=== PATIENT | male | born 1955 | race African-American/Black ===

== ENCOUNTER 2019-05-02 12:37 | Inpatient (IN) | payer OTHER ==
[2019-05-02 14:47] VITALS: BMI 19.6
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
--- NOTE | 2019-05-02 15:43 | PN ---
Teaching Attending Note Name of Resident: Jama Santos ATTENDING PHYSICIAN STATEMENT I saw and evaluated the patient. I reviewed the resident's note and discussed the case with the resident. I agree with the resident's findings and plan as documented. SUBJECTIVE: 63yo with h/o HIV, HTN, seizures and PUD, recently discharged from [facility] after a 2 day stay for seizures- was not taking his meds. Pt here for rehab- uses alcohol and marijuana. There are no beds available- pt seen by counselor and will go home, as there are no other beds available, pt will return tomorrow
[2019-05-02] MEDS ORDERED: guaiFENesin 200 MG/10 ML 10 ML UNIT-DOSE CUPS PO PRN (20:05)
[2019-05-02] MEDS ORDERED: NICOTINE POLACRILEX 2 MG GUM BUC PRN (20:05)
[2019-05-02] MEDS ORDERED: ACETAMINOPHEN 325 MG TABLET (FP) PO PRN (20:05)
[2019-05-02] MEDS ORDERED: IBUPROFEN 400 MG TABLET (FP) PO PRN (20:05)
[2019-05-02] MEDS ORDERED: P-EPHED 60MG/TRIPROLIDI 2.5MG TABLET PO PRN (20:05)
[2019-05-02] MEDS ORDERED: MENTHOL/PHENOL 1 EACH UD MM PRN (20:05)
[2019-05-02] MEDS ORDERED: LOPERAMIDE HCL 2 MG CAPSULE PO PRN (20:05)
[2019-05-02] MEDS ORDERED: MAGNESIUM CITRATE 300 ML BOTTLE PO PRN (20:05)
[2019-05-02] MEDS ORDERED: hydrOXYzine PAMOATE 25 MG CAPSULE (FP) PO PRN (20:05)
[2019-05-02] MEDS ORDERED: COLLOIDAL OATMEAL 1 BAR EACH TP PRN (20:09)
[2019-05-02] MEDS ORDERED: AMMONIUM LACTATE 12% LOTION 225 GM BOTTLE TP PRN (20:11)
[2019-05-02] MEDS ORDERED: LEVETIRACETAM 500 MG PO SCH (22:00)
[2019-05-02] MEDS ORDERED: VALGANCICLOVIR HCL PO SCH (22:00)
--- NOTE | 2019-05-02 22:05 | PN ---
[facility] Progress Note Note: Patient w/ a hx cocaine and marijuana use disorder. Patient states drinks on weekends. See 05/02/19 H&P. PMHx: Seizures, HIV + (states undetectable), acid reflux, HTN, CVA w/ residual ( R) sided weakness. States last seizure 4 days ago and was hospitalized at [facility]. States last alcohol use 4 days ago. PE: PERRL. Throat w/o lesions or exudate. Lungs CTA. Abd: S/NT/BS+ GALVAN: No edema. Neuro: BHG (L)>(R); Angelo Foot push (L)>(R). Denies headache. Gait steady w/ use of cane. Patient to be admitted to rehab.
[2019-05-02] MEDS: PANTOPRAZOLE 20 MG TABLET (FP) PO SCH (22:54)
[2019-05-02] MEDS: ATORVASTATIN CA 20 MG TABLET (FP) PO SCH (22:54)
[2019-05-02] MEDS: ATOVAQUONE 750 MG/5 ML (UNIT-DOSE PACKAGING) PO SCH (22:54)
[2019-05-02] MEDS: levETIRAcetam 500 MG TABLET (FP) PO SCH (22:54)
[2019-05-02] MEDS: THIAMINE HCL 100 MG TABLET (FP) PO SCH (22:55)
[2019-05-03] MEDS: ATOVAQUONE 750 MG/5 ML (UNIT-DOSE PACKAGING) PO SCH ×2 (10:08→21:30)
[2019-05-03] MEDS: PANTOPRAZOLE 20 MG TABLET (FP) PO SCH ×2 (10:08→21:30)
[2019-05-03] MEDS: levETIRAcetam 500 MG TABLET (FP) PO SCH ×2 (10:08→21:30)
[2019-05-03] MEDS: PRENATAL VITAMINS W/ FOLIC ACID TABLET (FP) PO SCH (10:08)
[2019-05-03] MEDS: NICOTINE 7 MG/24 HOURS TOPICAL PATCH TD SCH (10:09)
--- NOTE | 2019-05-03 10:41 | CONSULT ---
[facility] Psychiatric Consult - Data Date of interview: 05/03/19 Admission source: [facility] Identifying data: Patient is a 63 year old single male, father of seven, unemployed, domiciled, and is supported by [facility]. This is patient's first admission to rehab at [facility]. Patient admitted to for alcohol, marijuana, and cocaine dependence. Substance Abuse History: Smoking Cessation. Smoking history: Current every day smoker. Aproximately how many cigarettes per day: 2. - Substances abused. Alcohol. Substance route: Oral. Frequency: 1-2 times per week. Amount used: 1 /2 pint of vodka. Age of first use: 13. Date of last use: 04/25/19. Marijuana/Hashish. Substance route: Smoking. Frequency: Daily. Amount used: 2 blunts. Age of first use: 10. Date of last use: 04/23/19 Medical History: hypertension, seizures, CVA Psychiatric History: Patient denies h/o psychiatric hospitalization, outpatient care, and suicide attempt. Patient is currently prescribe zoloft 100mg daily + seroquel 100mg (30 day script on 04/23/19) which he claims he received from his PCP at the [facility] in [place], [place]. Reports never taking zoloft but has taken seroquel for insomnia. At present, patient reports stable mood but is experiencing difficulty sleeping. Physical/Sexual Abuse/Trauma History: denies. Mental Status Exam - Mental Status Exam Alert and Oriented to: Time, Place, Person Cognitive Function: Good Patient Appearance: Well Groomed Mood: Euthymic Affect: Mood Congruent Patient Behavior: Cooperative Speech Pattern: Appropriate Voice Loudness: Moderately Soft/Quiet Thought Process: Goal Oriented Thought Disorder: Not Present Hallucinations: Denies Suicidal Ideation: Denies Homicidal Ideation: Denies Insight/Judgement: Poor Sleep: Poorly Appetite: Fair Muscle strength/Tone: Normal Gait/Station: Other (Patient ambulates with a cane.) Psychiatric Findings - Problem List (Patrick 1, 2,3) (1) Alcohol dependence Current Visit: Yes Status: Acute (2) Cocaine dependence Current Visit: Yes Status: Acute (3) Marijuana dependence Current Visit: Yes Status: Acute (4) Substance-induced sleep disorder Current Visit: Yes Status: Acute - Initial Treatment Plan Initial Treatment Plan: Psychoeducation provided. Rehab in progress. Will order Seroquel 50mg HS (reduced dose due to noncompliance and unsteady gait). Benefits and side effects discussed. Verbal consent given.
[2019-05-03 11:36] LABS: HEMATOCRIT 27.2 % (35.4-49); HEMOGLOBIN 9.2 GM/dL (11.7-16.9); MCH 29.5 pg (25.7-33.7); MCHC 33.7 g/dl (32.0-35.9); MEAN CELL VOLUME 87.8 fl (80-96); MEAN PLT VOLUME 9.2 fl (7.5-11.1); PLATELET COUNT 157 K/MM3 (134-434); RDW 19.3 % (11.9-15.9)
[2019-05-03 11:38] LABS: ALBUMIN 2.7 g/dl (3.4-5.0); BILIRUBIN,TOTAL 0.3 mg/dL (0.2-1); BLOOD UREA NITROGEN 15.1 mg/dL (7-18); CALCIUM 8.4 mg/dL (8.5-10.1); POTASSIUM 3.9 mmol/L (3.5-5.1); TOT PROT 7.3 g/dl (6.4-8.2)
[2019-05-03 11:59] LABS: WHITE BLOOD COUNT 1.7 K/mm3 (4.0-10.0)
--- NOTE | 2019-05-03 12:22 | PN ---
S Progress Note Note: patient is adherent to his HIV medications. Also required prophylaxis for MAC. Bictarvy and Azithromycin ordered for the patient. Discussed with patient.
--- NOTE | 2019-05-03 14:10 | EKG ---
Test Reason : Blood Pressure : / mmHG Vent. Rate : 069 BPM Atrial Rate : 069 BPM P-R Int : 156 ms QRS Dur : 072 ms QT Int : 416 ms P-R-T Axes : 076 059 056 degrees QTc Int : 445 ms NORMAL SINUS RHYTHM NORMAL ECG NO PREVIOUS ECGS AVAILABLE Confirmed by ROSANA CRUZ, USHA ([id number]) on 05/03/2019 2:09:49 PM Referred By: HINA OCHOA Confirmed By:USHA WAYNE MD
[2019-05-03] MEDS: MAG HYDROX/AL HYDROX/SIMETH 30 ML UNIT-DOSE CUP PO PRN (14:46)
--- NOTE | 2019-05-03 15:36 | PN ---
[facility] Progress Note (SOAP) Subjective: Patient experienced a witnessed seizure. On Keppra, level pending. PMHx of seizure disorder from childhood. Objective: BP: 143/76, HR-93, afebrile, O2 sats98%. during seizure. General: calm and fatigued after seizure HEENT: normocephalic, PERRLA Lungs: clear Heart: s1 s2 audible Neuro: CN 2-12 intact, 05/03/19 15:33 Assessment: seizure disorder 05/03/19 15:35 Plan: Keppra level pending. Consulted with chief resident. If keppra level is within normal limits, increase Keppra dose from 500mg to 1,000 BID. Continue to monitor ; transfer to ER is not needed at this time. Nurses aware of plan.
[2019-05-03] MEDS ORDERED: PT OWN MED DRAWER 7, Y5N ONE ×2 (19:09→19:40)
[2019-05-03] MEDS: MAGNESIUM HYDROX 2400MG/30ML ORAL SUSPENSION 30 ML CUP PO PRN (19:12)
[2019-05-03] MEDS: THIAMINE HCL 100 MG TABLET (FP) PO SCH (21:30)
[2019-05-03] MEDS: QUEtiapine FUMARATE 100 MG TABLET (FP) PO SCH (21:30)
[2019-05-03] MEDS: ATORVASTATIN CA 20 MG TABLET (FP) PO SCH (21:30)
[2019-05-04] MEDS: BICTEGRAV/EMTRICIT/TENOFOV (BIKTARVY) 50-200-25 MG TABLET PO SCH (07:46)
[2019-05-04] MEDS ORDERED: PT OWN MED DRAWER 7, Y5N ONE ×4 (08:47→21:27)
[2019-05-04] MEDS: ATOVAQUONE 750 MG/5 ML (UNIT-DOSE PACKAGING) PO SCH ×2 (10:15→21:23)
[2019-05-04] MEDS: NICOTINE 7 MG/24 HOURS TOPICAL PATCH TD SCH (10:16)
[2019-05-04] MEDS: PANTOPRAZOLE 20 MG TABLET (FP) PO SCH ×2 (10:16→21:21)
[2019-05-04] MEDS: levETIRAcetam 500 MG TABLET (FP) PO SCH ×2 (10:16→21:20)
[2019-05-04] MEDS: PRENATAL VITAMINS W/ FOLIC ACID TABLET (FP) PO SCH (10:16)
[2019-05-04] MEDS ORDERED: AZITHROMYCIN 600 MG TABLET PO ONE (13:00)
[2019-05-04] MEDS: MAG HYDROX/AL HYDROX/SIMETH 30 ML UNIT-DOSE CUP PO PRN (14:33)
[2019-05-04] MEDS: QUEtiapine FUMARATE 100 MG TABLET (FP) PO SCH (21:21)
[2019-05-04] MEDS: ATORVASTATIN CA 20 MG TABLET (FP) PO SCH (21:21)
[2019-05-04] MEDS: THIAMINE HCL 100 MG TABLET (FP) PO SCH (21:24)
[2019-05-04] MEDS: MAGNESIUM HYDROX 2400MG/30ML ORAL SUSPENSION 30 ML CUP PO PRN (21:28)
[2019-05-05] MEDS: BICTEGRAV/EMTRICIT/TENOFOV (BIKTARVY) 50-200-25 MG TABLET PO SCH (08:50)
[2019-05-05] MEDS: PRENATAL VITAMINS W/ FOLIC ACID TABLET (FP) PO SCH (10:53)
[2019-05-05] MEDS: NICOTINE 7 MG/24 HOURS TOPICAL PATCH TD SCH (10:53)
[2019-05-05] MEDS: levETIRAcetam 500 MG TABLET (FP) PO SCH ×2 (10:53→21:19)
[2019-05-05] MEDS: PANTOPRAZOLE 20 MG TABLET (FP) PO SCH ×2 (10:53→21:20)
[2019-05-05] MEDS: ATOVAQUONE 750 MG/5 ML (UNIT-DOSE PACKAGING) PO SCH ×2 (10:53→21:20)
[2019-05-05] MEDS: MAG HYDROX/AL HYDROX/SIMETH 30 ML UNIT-DOSE CUP PO PRN (16:44)
[2019-05-05] MEDS: THIAMINE HCL 100 MG TABLET (FP) PO SCH (21:19)
[2019-05-05] MEDS: ATORVASTATIN CA 20 MG TABLET (FP) PO SCH (21:19)
[2019-05-05] MEDS: QUEtiapine FUMARATE 100 MG TABLET (FP) PO SCH (21:20)
[2019-05-06] MEDS: BICTEGRAV/EMTRICIT/TENOFOV (BIKTARVY) 50-200-25 MG TABLET PO SCH (09:00)
[2019-05-06] MEDS: levETIRAcetam 500 MG TABLET (FP) PO SCH ×2 (09:58→22:54)
[2019-05-06] MEDS: ATOVAQUONE 750 MG/5 ML (UNIT-DOSE PACKAGING) PO SCH ×2 (09:59→22:54)
[2019-05-06] MEDS: PRENATAL VITAMINS W/ FOLIC ACID TABLET (FP) PO SCH (10:00)
[2019-05-06] MEDS: PANTOPRAZOLE 20 MG TABLET (FP) PO SCH ×2 (10:00→22:54)
[2019-05-06] MEDS: NICOTINE 7 MG/24 HOURS TOPICAL PATCH TD SCH (10:00)
[2019-05-06] MEDS: ATORVASTATIN CA 20 MG TABLET (FP) PO SCH (22:54)
[2019-05-06] MEDS: THIAMINE HCL 100 MG TABLET (FP) PO SCH (22:55)
[2019-05-06] MEDS: QUEtiapine FUMARATE 100 MG TABLET (FP) PO SCH (22:55)
[2019-05-07] MEDS: BICTEGRAV/EMTRICIT/TENOFOV (BIKTARVY) 50-200-25 MG TABLET PO SCH (08:03)
[2019-05-07] MEDS: PANTOPRAZOLE 20 MG TABLET (FP) PO SCH ×2 (09:04→22:18)
[2019-05-07] MEDS: ATOVAQUONE 750 MG/5 ML (UNIT-DOSE PACKAGING) PO SCH ×2 (10:05→22:18)
[2019-05-07] MEDS: NICOTINE 7 MG/24 HOURS TOPICAL PATCH TD SCH (10:05)
[2019-05-07] MEDS: levETIRAcetam 500 MG TABLET (FP) PO SCH ×2 (10:05→22:17)
[2019-05-07] MEDS: PRENATAL VITAMINS W/ FOLIC ACID TABLET (FP) PO SCH (10:06)
[2019-05-07] MEDS: THIAMINE HCL 100 MG TABLET (FP) PO SCH (22:18)
[2019-05-07] MEDS: ATORVASTATIN CA 20 MG TABLET (FP) PO SCH (22:18)
[2019-05-07] MEDS: QUEtiapine FUMARATE 100 MG TABLET (FP) PO SCH (22:19)
[2019-05-08] MEDS: BICTEGRAV/EMTRICIT/TENOFOV (BIKTARVY) 50-200-25 MG TABLET PO SCH (08:01)
[2019-05-08] MEDS: levETIRAcetam 500 MG TABLET (FP) PO SCH ×2 (10:00→21:28)
[2019-05-08] MEDS: NICOTINE 7 MG/24 HOURS TOPICAL PATCH TD SCH (10:00)
[2019-05-08] MEDS: PRENATAL VITAMINS W/ FOLIC ACID TABLET (FP) PO SCH (10:00)
[2019-05-08] MEDS: PANTOPRAZOLE 20 MG TABLET (FP) PO SCH ×2 (10:00→21:28)
[2019-05-08] MEDS: ATOVAQUONE 750 MG/5 ML (UNIT-DOSE PACKAGING) PO SCH ×2 (10:00→21:28)
[2019-05-08] MEDS: MAG HYDROX/AL HYDROX/SIMETH 30 ML UNIT-DOSE CUP PO PRN ×2 (10:02→21:29)
[2019-05-08] MEDS ORDERED: PT OWN MED DRAWER 7, Y5N ONE (10:18)
[2019-05-08 12:42] LABS: PH,URINE 5.5 (5.0-8.0); URINE APPEARANCE CLEAR; URINE BILIRUBIN NEGATIVE (NEGATIVE); URINE COLOR YELLOW; URINE GLUCOSE (UA) NEGATIVE (NEGATIVE); URINE KETONE NEGATIVE (NEGATIVE); URINE LEUK ESTERASE NEGATIVE (NEGATIVE); URINE NITRITE NEGATIVE (NEGATIVE); URINE PROTEIN NEGATIVE (NEGATIVE); URINE UROBILINOGEN 0.2 mg/dL (0.2-1.0)
[2019-05-08] MEDS: QUEtiapine FUMARATE 100 MG TABLET (FP) PO SCH (21:27)
[2019-05-08] MEDS: THIAMINE HCL 100 MG TABLET (FP) PO SCH (21:28)
[2019-05-08] MEDS: ATORVASTATIN CA 20 MG TABLET (FP) PO SCH (21:28)
[2019-05-09] MEDS: BICTEGRAV/EMTRICIT/TENOFOV (BIKTARVY) 50-200-25 MG TABLET PO SCH (08:07)
[2019-05-09] MEDS: PANTOPRAZOLE 20 MG TABLET (FP) PO SCH ×2 (10:06→21:18)
[2019-05-09] MEDS: PRENATAL VITAMINS W/ FOLIC ACID TABLET (FP) PO SCH (10:06)
[2019-05-09] MEDS: ATOVAQUONE 750 MG/5 ML (UNIT-DOSE PACKAGING) PO SCH ×2 (10:07→21:18)
[2019-05-09] MEDS: levETIRAcetam 500 MG TABLET (FP) PO SCH ×2 (10:07→21:18)
[2019-05-09] MEDS: NICOTINE 7 MG/24 HOURS TOPICAL PATCH TD SCH (10:08)
[2019-05-09] MEDS: MAG HYDROX/AL HYDROX/SIMETH 30 ML UNIT-DOSE CUP PO PRN ×2 (10:09→21:18)
[2019-05-09] MEDS: QUEtiapine FUMARATE 100 MG TABLET (FP) PO SCH (21:18)
[2019-05-09] MEDS: THIAMINE HCL 100 MG TABLET (FP) PO SCH (21:18)
[2019-05-09] MEDS: ATORVASTATIN CA 20 MG TABLET (FP) PO SCH (21:18)
[2019-05-10] MEDS: BICTEGRAV/EMTRICIT/TENOFOV (BIKTARVY) 50-200-25 MG TABLET PO SCH (09:00)
[2019-05-10] MEDS: levETIRAcetam 500 MG TABLET (FP) PO SCH ×2 (10:00→21:39)
[2019-05-10] MEDS: PANTOPRAZOLE 20 MG TABLET (FP) PO SCH ×2 (10:01→21:39)
[2019-05-10] MEDS: NICOTINE 7 MG/24 HOURS TOPICAL PATCH TD SCH (10:01)
[2019-05-10] MEDS: PRENATAL VITAMINS W/ FOLIC ACID TABLET (FP) PO SCH (10:01)
[2019-05-10] MEDS: ATOVAQUONE 750 MG/5 ML (UNIT-DOSE PACKAGING) PO SCH ×2 (10:01→21:39)
[2019-05-10] MEDS: MAG HYDROX/AL HYDROX/SIMETH 30 ML UNIT-DOSE CUP PO PRN (10:04)
--- NOTE | 2019-05-10 14:05 | PN ---
S Progress Note (SOAP) Subjective: Patient c/o redness and itching in right eye. Denies injury, purulent discharge , stuck together eyelids upon awakening. Objective: P/E General: no apparent distress, resting comfortably in bed HEENTM: PERRLA, Right eye injected, tearing. 05/10/19 14:03 Assessment: allergic conjunctivitis vs viral conjunctivitis 05/10/19 14:04 Plan: Ordered Naphcon-A, will continue to monitor; any changes will re-assess.
[2019-05-10] MEDS ORDERED: NAPHAZOLINE 0.1% OPHTHALMIC SOLUTION 15 ML BOTTLE OD SCH (18:00)
[2019-05-10] MEDS: TETRAHYDROZOLINE HCL EYE DROPS OS SCH ×2 (18:15→21:40)
[2019-05-10] MEDS: ATORVASTATIN CA 20 MG TABLET (FP) PO SCH (21:39)
[2019-05-10] MEDS: THIAMINE HCL 100 MG TABLET (FP) PO SCH (21:39)
[2019-05-10] MEDS: QUEtiapine FUMARATE 100 MG TABLET (FP) PO SCH (21:39)
[2019-05-11] MEDS: PRENATAL VITAMINS W/ FOLIC ACID TABLET (FP) PO SCH (10:10)
[2019-05-11] MEDS: PANTOPRAZOLE 20 MG TABLET (FP) PO SCH ×2 (10:10→21:38)
[2019-05-11] MEDS: levETIRAcetam 500 MG TABLET (FP) PO SCH ×2 (10:10→21:37)
[2019-05-11] MEDS: ATOVAQUONE 750 MG/5 ML (UNIT-DOSE PACKAGING) PO SCH ×2 (10:11→21:38)
[2019-05-11] MEDS: BICTEGRAV/EMTRICIT/TENOFOV (BIKTARVY) 50-200-25 MG TABLET PO SCH (10:15)
[2019-05-11] MEDS: NICOTINE 7 MG/24 HOURS TOPICAL PATCH TD SCH (10:15)
[2019-05-11] MEDS: MAGNESIUM HYDROX 2400MG/30ML ORAL SUSPENSION 30 ML CUP PO PRN (10:15)
[2019-05-11] MEDS: TETRAHYDROZOLINE HCL EYE DROPS OS SCH ×4 (10:15→21:41)
--- NOTE | 2019-05-11 16:26 | PN ---
[facility] Progress Note Note: Rapid response called due to patient having seizure. When residential mortgage underwriter arrived to unit , patient was sitting in chair in hallway, alert and verbally responsive. PMH HIV +, ETOH/THC dependence and Seizure disorder. Last witnessed seizure 05/02. Patient on Keppra and dose adjusted by LEAD SYSTEMS ANALYST Francia Diaz on 05/02/19. Last Keppra level 05/03/19 4.3. V/S 128/78 114 22 O2 sats 95% Oxygen 3l via nc applied and patient's safety maintained. After one minute, patient had olfactory aura and then began to seize again, for approximately 15- 20 seconds. 911 called and patient monitored by Dr. Reddy, nursing staff and provider until EMS arrived. Patient had one more witness seizure with EMS present and patient medicated with Versed by EMS. Patient transferred to [facility] ER for evaluation and treatment. Report given to Kelly Astorga RN.
[2019-05-11] MEDS: ATORVASTATIN CA 20 MG TABLET (FP) PO SCH (21:37)
[2019-05-11] MEDS: QUEtiapine FUMARATE 100 MG TABLET (FP) PO SCH (21:38)
[2019-05-11] MEDS: THIAMINE HCL 100 MG TABLET (FP) PO SCH (21:41)
[2019-05-12] MEDS ORDERED: PT OWN MED DRAWER 7, Y5N ONE ×2 (02:57→20:16)
[2019-05-12] MEDS: BICTEGRAV/EMTRICIT/TENOFOV (BIKTARVY) 50-200-25 MG TABLET PO SCH (07:41)
[2019-05-12] MEDS: levETIRAcetam 500 MG TABLET (FP) PO SCH ×2 (09:50→21:53)
[2019-05-12] MEDS: PRENATAL VITAMINS W/ FOLIC ACID TABLET (FP) PO SCH (09:50)
[2019-05-12] MEDS: PANTOPRAZOLE 20 MG TABLET (FP) PO SCH ×2 (09:50→21:55)
[2019-05-12] MEDS: MAG HYDROX/AL HYDROX/SIMETH 30 ML UNIT-DOSE CUP PO PRN (09:52)
[2019-05-12] MEDS: NICOTINE 7 MG/24 HOURS TOPICAL PATCH TD SCH (09:53)
[2019-05-12] MEDS: ATOVAQUONE 750 MG/5 ML (UNIT-DOSE PACKAGING) PO SCH ×2 (09:53→21:55)
[2019-05-12] MEDS: TETRAHYDROZOLINE HCL EYE DROPS OS SCH ×4 (10:10→21:55)
[2019-05-12] MEDS: QUEtiapine FUMARATE 100 MG TABLET (FP) PO SCH (21:55)
[2019-05-12] MEDS: THIAMINE HCL 100 MG TABLET (FP) PO SCH (21:55)
[2019-05-12] MEDS: ATORVASTATIN CA 20 MG TABLET (FP) PO SCH (21:55)
[2019-05-13] MEDS: BICTEGRAV/EMTRICIT/TENOFOV (BIKTARVY) 50-200-25 MG TABLET PO SCH (07:04)
[2019-05-13] MEDS: MAG HYDROX/AL HYDROX/SIMETH 30 ML UNIT-DOSE CUP PO PRN ×2 (07:06→21:29)
[2019-05-13] MEDS: PANTOPRAZOLE 20 MG TABLET (FP) PO SCH ×2 (10:13→21:27)
[2019-05-13] MEDS: PRENATAL VITAMINS W/ FOLIC ACID TABLET (FP) PO SCH (10:13)
[2019-05-13] MEDS: ATOVAQUONE 750 MG/5 ML (UNIT-DOSE PACKAGING) PO SCH ×2 (10:14→21:28)
[2019-05-13] MEDS: levETIRAcetam 500 MG TABLET (FP) PO SCH ×2 (10:14→21:27)
[2019-05-13] MEDS: TETRAHYDROZOLINE HCL EYE DROPS OS SCH ×4 (10:14→21:26)
[2019-05-13] MEDS: NICOTINE 7 MG/24 HOURS TOPICAL PATCH TD SCH (10:14)
[2019-05-13] MEDS ORDERED: PT OWN MED DRAWER 7, Y5N ONE (19:28)
[2019-05-13] MEDS: THIAMINE HCL 100 MG TABLET (FP) PO SCH (21:26)
[2019-05-13] MEDS: QUEtiapine FUMARATE 100 MG TABLET (FP) PO SCH (21:27)
[2019-05-13] MEDS: ATORVASTATIN CA 20 MG TABLET (FP) PO SCH (21:27)
[2019-05-14] MEDS: BICTEGRAV/EMTRICIT/TENOFOV (BIKTARVY) 50-200-25 MG TABLET PO SCH (08:14)
[2019-05-14] MEDS: levETIRAcetam 500 MG TABLET (FP) PO SCH ×2 (10:13→21:23)
[2019-05-14] MEDS: PANTOPRAZOLE 20 MG TABLET (FP) PO SCH ×2 (10:14→21:23)
[2019-05-14] MEDS: PRENATAL VITAMINS W/ FOLIC ACID TABLET (FP) PO SCH (10:14)
[2019-05-14] MEDS: MAG HYDROX/AL HYDROX/SIMETH 30 ML UNIT-DOSE CUP PO PRN ×2 (10:15→21:25)
[2019-05-14] MEDS: NICOTINE 7 MG/24 HOURS TOPICAL PATCH TD SCH (10:29)
[2019-05-14] MEDS: TETRAHYDROZOLINE HCL EYE DROPS OS SCH ×4 (10:29→21:24)
[2019-05-14] MEDS: ATOVAQUONE 750 MG/5 ML (UNIT-DOSE PACKAGING) PO SCH ×2 (10:29→21:24)
[2019-05-14] MEDS: THIAMINE HCL 100 MG TABLET (FP) PO SCH (21:23)
[2019-05-14] MEDS: ATORVASTATIN CA 20 MG TABLET (FP) PO SCH (21:23)
[2019-05-14] MEDS: QUEtiapine FUMARATE 100 MG TABLET (FP) PO SCH (21:23)
[2019-05-15 06:59] VITALS: BP 147/90; PULSE 84; TEMP 98
[2019-05-15] MEDS ORDERED: PT OWN MED DRAWER 7, Y5N ONE (09:05)
--- NOTE | 2019-05-15 09:31 | DS ---
[facility] Rehab Discharge Summary - [facility] Re[facility] Discharge Summary Admission Date: 05/02/19 Discharge Date: 05/15/19 - History Present History: Alcohol dependence, Cannabis dependence, Cocaine dependence Additional Comments: 63yo with h/o HIV, HTN, seizures and PUD, admitted for rehab services for cocaine, alcohol and marijuana. Pt will f/u with PCP for further services. PT did not want to have labs done today- Keppra and CBC- which were abnormal. Pt signed refusal. Pt aware of the need to take Keppra to avoid seizures. - Discharge Physical Exam Vital Signs: Vital Signs Temperature 98 F 05/15/19 06:58 Pulse Rate 84 05/15/19 06:58 Respiratory Rate 20 05/15/19 06:58 Blood Pressure 147/90 05/15/19 06:58 O2 Sat by Pulse Oximetry (%) - Treatment Discharge Condition: Discharge condition good - Medication Discharge Medications: Ambulatory Orders Atorvastatin Ca [Lipitor] 20 mg PO DAILY 05/02/19 Atovaquone [Mepron -] 10 ml PO BID 05/02/19 Famotidine 20 mg PO BID 05/02/19 Gabapentin 600 mg PO TID 05/02/19 Levetiracetam 500 mg PO BID 05/02/19 Mag Hydrox/Aluminum Hyd/Simeth [Almacone Suspension] 355 ml PO QID PRN 05/02/19 Multivitamins [Tab-A-Vit -] 1 tab PO DAILY 05/02/19 Nicotine Patch [Nicoderm Patch -] 1 patch TD DAILY 05/02/19 Quetiapine Fumarate [Seroquel -] 100 mg PO HS 05/02/19 Sertraline HCl [Zoloft] 100 mg PO DAILY 05/02/19 Valganciclovir HCl 900 mg PO BID 05/02/19 Azithromycin [Zithromax 600mg Tablets -] 1,200 mg PO ONCE #10 tablet 05/03/19 Bictegrav/Emtricit/Tenofov Ala [Biktarvy 50-200-25 mg Tablet] 1 each PO DAILY # 30 tablet 05/03/19 Sulfamethoxazole/Trimethoprim [Bactrim Ds -] 1 tab PO DAILY #30 tablet 05/03/19 - Medication-Assisted Treatment (MAT) Medication-Assisted Treatment (MAT): No - Discharge Instructions Diet, activity, other medical instructions: Diet: Activity: Other medical instructions: - Diagnosis (1) HIV (human immunodeficiency virus infection) Current Visit: Yes Status: Acute (2) Alcohol dependence Current Visit: Yes Status: Acute (3) Cocaine dependence Current Visit: Yes Status: Acute (4) Marijuana dependence Current Visit: Yes Status: Acute (5) Substance-induced sleep disorder Current Visit: Yes Status: Acute (6) Seizure Current Visit: No Status: Acute - Follow-up Referral Minutes to complete discharge: 30 - AMA Did Patient Leave Against Medical Advice: No
== END 2019-05-15 09:18 | disposition home or self-care (01) | DRG 772 ==
LOC: YASAS 12:37 → Y3W 19:48
PROVIDERS: ADMIT Neuromusculoskeletal Medicine & OMM; ATTEND Neuromusculoskeletal Medicine & OMM
PROC: HZ42ZZZ Group Counseling for Substance Abuse Treatment, Cognitive-Behavioral (ICD-10-PCS; principal; 2019-05-02)
DX: F10.20 Alcohol dependence, uncomplicated (principal); F14.20 Cocaine dependence, uncomplicated; F12.20 Cannabis dependence, uncomplicated; F17.210 Nicotine dependence, cigarettes, uncomplicated; F19.282 Other psychoactive substance dependence with psychoactive substance-induced sleep disorder; I10 Essential (primary) hypertension; Z21 Asymptomatic human immunodeficiency virus [HIV] infection status; G40.909 Epilepsy, unspecified, not intractable, without status epilepticus; H10.89 Other conjunctivitis; K21.9 Gastro-esophageal reflux disease without esophagitis; I69.351 Hemiplegia and hemiparesis following cerebral infarction affecting right dominant side
CPT/HCPCS: 36415; 80053; 80177; 81003; 85027; 86480; 86593; 87389; 93005; 93010

== ENCOUNTER 2019-05-11 15:40 | Emergency (ER) | payer OTHER ==
[2019-05-11 16:24] VITALS: BP 140/77; PULSE 95; TEMP 98.2; BMI 19.6
--- NOTE | 2019-05-11 16:42 | PDOC ---
History of Present Illness - General Chief Complaint: Seizure Stated Complaint: SEIZURE Time Seen by Provider: 05/11/19 16:41 Past History - Past Medical History Allergies/Adverse Reactions: Allergies Allergy/AdvReac Type Severity Reaction Status Date / Time No Known Allergies Allergy Verified 05/02/19 14:08 Home Medications: Ambulatory Orders Atorvastatin Ca [Lipitor] 20 mg PO DAILY 05/02/19 Atovaquone [Mepron -] 10 ml PO BID 05/02/19 Famotidine 20 mg PO BID 05/02/19 Gabapentin 600 mg PO TID 05/02/19 Levetiracetam 500 mg PO BID 05/02/19 Mag Hydrox/Aluminum Hyd/Simeth [Almacone Suspension] 355 ml PO QID PRN 05/02/19 Multivitamins [Tab-A-Vit -] 1 tab PO DAILY 05/02/19 Nicotine Patch [Nicoderm Patch -] 1 patch TD DAILY 05/02/19 Quetiapine Fumarate [Seroquel -] 100 mg PO HS 05/02/19 Sertraline HCl [Zoloft] 100 mg PO DAILY 05/02/19 Valganciclovir HCl 900 mg PO BID 05/02/19 Azithromycin [Zithromax 600mg Tablets -] 1,200 mg PO ONCE #10 tablet 05/03/19 Bictegrav/Emtricit/Tenofov Ala [Biktarvy 50-200-25 mg Tablet] 1 each PO DAILY # 30 tablet 05/03/19 Sulfamethoxazole/Trimethoprim [Bactrim Ds -] 1 tab PO DAILY #30 tablet 05/03/19 Asthma: Yes Cancer: No Cardiac Disorders: No CVA: Yes (rt side weakness) COPD: No Diabetes: No GI Disorders: No Disorders: No HTN: Yes Hypercholesterolemia: Yes Kidney Stones: No Seizures: Yes - Surgical History Abdominal Surgery: No Appendectomy: No Cardiac Surgery: No Cholecystectomy: No Lung Surgery: No Neurologic Surgery: No Orthopedic Surgery: No - Reproductive History Testicular Surgery: No - Psycho Social/Smoking Cessation Hx Smoking History: Current every day smoker Have you smoked in the past 12 months: Yes Number of Cigarettes Smoked Daily: 2 Information on smoking cessation initiated: No Hx Alcohol Use: Yes Drug/Substance Use Hx: Yes (cocaine) Hx Substance Use Treatment: No *Physical Exam - Vital Signs Last Vital Signs Temp Pulse Resp BP Pulse Ox 98.2 F 95 H 18 140/77 100 05/11/19 16:00 05/11/19 16:00 05/11/19 16:00 05/11/19 16:00 05/11/19 16:00 ED Treatment Course - LABORATORY CBC & Chemistry Diagram: 05/11/19 18:15 05/11/19 18:15 - ADDITIONAL ORDERS Additional order review: Laboratory Results 05/11/19 16:31 POC Glucometer 111 05/11/19 16:31 POC Glucometer 111 Medical Decision Making - Medical Decision Making HPI: 63yo M with PMH of seizures (on keppra), HIV (unknown CD4 count, undetectable viral load), CVA with residual right sided weakness, at [facility] for [place] joints (marijuanan and cocaine), ETOH sent by [facility] for evaluation of seizures. Per [facility] patient had five seizures from 2:35pm to 3:05pm. He received Versed 5mg from EMS and had a glucose of 118. Per patient, it is not unusual for him to have multiple seizures in a single day. His most recent seizure was five days ago. Patient's keppra level was subtherapeutic on 05/03/19 and was increased from 500mg to 1000mg. Miguel A's usual seizure triggers include stress and he has been under considerable stress recently. Patient receives his medical care from [facility]. While he has been compliant on his HIV medication, he had not been taking his keppra consistently. His seizure medication was changed from dilantin to keppra about four months ago when he was at [facility]. Upon review of systems, patient endorses fever, chills, headache, abdominal pain, and chest wall tenderness, sequelae which he associates with having had a seizure. ROS: Constitutional: +fever, +chills HEENT: no throat pain, no dysphagia Cardiovascular: +chest pain, no palpitations Respiratory: no cough, no shortness of breath Gastrointestinal: +abdominal pain, no nausea Genitourinary: no dysuria, no hematuria Musculoskeletal: no myalgia, no arthralgia Skin: no rash, no itching Neurologic: +headache, +weakness PE: General: Awake, alert, and fully oriented, in no acute distress Head: No signs of trauma Eyes: EOMI, sclera anicteric ENT: Moist mucus membranes Neck: Normal ROM, supple Lungs: Lungs clear, Normal breath sounds Cardio: Regular rhythm, S1 and S2 present Abdomen: Soft, nontender. No guarding, no rebound, no masses Extremities: Normal range of motion, Distal pulses present SKIN: Warm, Dry, normal turgor Neurologic: Cranial nerves II through XII intact. Normal speech, coordination. Decreased strength and sensation on RUE and RLE when compared to LUE and LLE ED Course/MDM: DDX including but not limited to seizure due to subtherapeutic keppra level, breakthrough seizure, alcohol withdrawal Labs, EKG, [facility]R [facility] EKG: rate 84, QTc 475, NSR 05/11/19 16:41 Call over to [facility]; Spoke with ext: [phone], Miss Reynolds patient did not fall as staff and his roommate kept him from falling. 2:35pm patient had a seizure for about 45 second and had multiple seizures until 3:05pm 05/11/19 17:19 CBC WBC 2.3 K/mm3 (4.0-10.0) L 05/11/19 18:15 RBC 2.71 M/mm3 (4.00-5.60) L 05/11/19 18:15 Hgb 8.1 GM/dL (11.7-16.9) L 05/11/19 18:15 Hct 24.2 % (35.4-49) L 05/11/19 18:15 MCV 89.3 fl (80-96) 05/11/19 18:15 MCH 29.7 pg (25.7-33.7) 05/11/19 18:15 MCHC 33.3 g/dl (32.0-35.9) 05/11/19 18:15 RDW 18.4 % (11.9-15.9) H 05/11/19 18:15 Plt Count 158 K/MM3 (134-434) 05/11/19 18:15 MPV 8.5 fl (7.5-11.1) 05/11/19 18:15 Absolute Neuts (auto) 1.6 K/mm3 (1.5-8.0) 05/11/19 18:15 Neutrophils % 68.6 % (42.8-82.8) 05/11/19 18:15 Neutrophils % (Manual) 67.4 % (42.8-82.8) 05/11/19 18:15 Band Neutrophils % 2.0 % 05/11/19 18:15 Lymphocytes % 16.3 % (8-40) 05/11/19 18:15 Lymphocytes % (Manual) 17.4 % (8-40) 05/11/19 18:15 Monocytes % 8.2 % (3.8-10.2) 05/11/19 18:15 Monocytes % (Manual) 6 % (3.8-10.2) 05/11/19 18:15 Eosinophils % 4.6 % (0-4.5) H 05/11/19 18:15 Eosinophils % (Manual) 2.0 % (0-4.5) 05/11/19 18:15 Basophils % 2.3 % (0-2.0) H 05/11/19 18:15 Basophils % (Manual) 0.0 % (0-2.0) 05/11/19 18:15 Myelocytes % (Man) 0 % (0-2) 05/11/19 18:15 Promyelocytes % (Man) 0 % (0-2) 05/11/19 18:15 Blast Cells % (Manual) 4 % (0-0) H 05/11/19 18:15 Nucleated RBC % 0 % (0-0) 05/11/19 18:15 Metamyelocytes 1 % (0-2) 05/11/19 18:15 Hypochromia 1+ 05/11/19 18:15 Platelet Estimate Decreased 05/11/19 18:15 Anisocytosis 2+ 05/11/19 18:15 Hgb with drop by about 1 over one week Low WBC CMP Sodium 139 mmol/L (136-145) 05/11/19 18:15 Potassium 4.2 mmol/L (3.5-5.1) 05/11/19 18:15 Chloride 109 mmol/L (98-107) H 05/11/19 18:15 Carbon Dioxide 24 mmol/L (21-32) 05/11/19 18:15 Anion Gap 6 MMOL/L (8-16) L 05/11/19 18:15 BUN 19.2 mg/dL (7-18) H 05/11/19 18:15 Creatinine 1.0 mg/dL (0.55-1.3) 05/11/19 18:15 Est GFR (CKD-EPI)AfAm 93.08 05/11/19 18:15 Est GFR (CKD-EPI)NonAf 80.31 05/11/19 18:15 POC Glucometer 111 UNITS (80-120) 05/11/19 16:31 Random Glucose 106 mg/dL (74-106) 05/11/19 18:15 Calcium 7.8 mg/dL (8.5-10.1) L 05/11/19 18:15 Total Bilirubin 0.7 mg/dL (0.2-1) 05/11/19 18:15 AST 21 U/L (15-37) 05/11/19 18:15 ALT 29 U/L (13-61) 05/11/19 18:15 Alkaline Phosphatase 52 U/L (45-117) 05/11/19 18:15 Troponin I < 0.02 ng/ml (0.00-0.05) 05/11/19 18:15 Total Protein 6.5 g/dl (6.4-8.2) 05/11/19 18:15 Albumin 2.4 g/dl (3.4-5.0) L 05/11/19 18:15 Electrolytes unremarkable Normal Cr Tpn undetectable FOBT negative UA negative for infection CXR, as read by radiology: "The cardiac silhouette is borderline in size to slightly enlarged allowing for magnification. There are mild bilateral increased lung markings. There is mild elevation of the left hemidiaphragm with suggestion of atelectatic changes in the left lung base. Cannot rule out infiltrates. No pneumothorax is seen. Mediastinum and visualized osseous structures appear intact Impression: Mild elevation of the left hemidiaphragm with suggestion of mild atelectatic changes in the left lung base. Cannot rule out infiltrates. Follow-up chest x-ray, PA and lateral is needed for further evaluation. " Patient denies melena or hematemesis. Dr. Cardona spoke with provider [facility] and patient's baseline hgb is 8. As he is at his baseline and is hemodynamically stable here, he is good candidate for repeat blood work at [facility]. We will call over and see if [facility] can accommodate the repeat blood work. 05/11/19 21:05 Spoke with Gail at [facility] to update her regarding patient's discharge. He is able to get repeat blood work tomorrow. 05/11/19 21:44 Patient awaiting transportation back to [facility]. I explained to the patient that since he is an admitted patient, he needs to return to [facility] via ambulance which does take a significant amount of time to arrange. He became angry and raised his voice, stating he could not understand what would take so long. I explained that we have ordered transportation and thatthat he could leave AMA if he did not want to wait. Patient amenable to awaiting transportation. Discharge - Discharge Information Problems reviewed: Yes Clinical Impression/Diagnosis: Seizure Disposition: TRANSFER ACUTE CARE/OTHER HOSP - Follow up/Referral - Patient Discharge Instructions Patient Printed Discharge Instructions: DI for Seizure Disorder -- Adult Additional Instructions: You came to the emergency department for a seizure and fall. Lab work was at your baseline. We are concerned about your low hemoglobin. Your stool sample was negative for blood. Get repeat blood work tomorrow to monitor your hemoglobin level. Follow up with your neurologist in five to seven days to discuss this ED visit and to further evaluate your seizures. Your care is not complete until you do so. Call and make an appointment. RETURN if: you have severe headache, high fever, persistent vomiting, changes in vision, severe muscle pain, dark (tea-colored) urine, recurrent seizures, or any other new or concerning symptoms - Post Discharge Activity
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
[2019-05-11] MEDS ORDERED: ACETAMINOPHEN 1000 MG/100 ML VIAL (NON FORMULARY) IVPB ONE (17:17)
[2019-05-11] MEDS ORDERED: ACETAMINOPHEN INJECTION 100 ML IVPB ONE (17:26)
[2019-05-11 18:34] LABS: BASO % 2.3 % (0-2.0); EOS % 4.6 % (0-4.5); HEMATOCRIT 24.2 % (35.4-49); HEMOGLOBIN 8.1 GM/dL (11.7-16.9); LYMPH % 16.3 % (8-40); MCH 29.7 pg (25.7-33.7); MCHC 33.3 g/dl (32.0-35.9); MEAN CELL VOLUME 89.3 fl (80-96); MEAN PLT VOLUME 8.5 fl (7.5-11.1); MONO % 8.2 % (3.8-10.2); NEUT % 68.6 % (42.8-82.8); PLATELET COUNT 158 K/MM3 (134-434); RBC 2.71 M/mm3 (4.00-5.60); RDW 18.4 % (11.9-15.9); WHITE BLOOD COUNT 2.3 K/mm3 (4.0-10.0)
[2019-05-11 18:55] LABS: ALBUMIN 2.4 g/dl (3.4-5.0); BILIRUBIN,TOTAL 0.7 mg/dL (0.2-1); BLOOD UREA NITROGEN 19.2 mg/dL (7-18); CALCIUM 7.8 mg/dL (8.5-10.1); POTASSIUM 4.2 mmol/L (3.5-5.1); TOT PROT 6.5 g/dl (6.4-8.2)
[2019-05-11 19:31] LABS: ANISOCYTOSIS 2+; PLATELET ESTIMATE DECREASED
[2019-05-11 21:06] LABS: PH,URINE 5.5 (5.0-8.0); URINE APPEARANCE CLEAR; URINE BILIRUBIN NEGATIVE (NEGATIVE); URINE COLOR YELLOW; URINE GLUCOSE (UA) NEGATIVE (NEGATIVE); URINE KETONE NEGATIVE (NEGATIVE); URINE LEUK ESTERASE NEGATIVE (NEGATIVE); URINE NITRITE NEGATIVE (NEGATIVE); URINE PROTEIN NEGATIVE (NEGATIVE); URINE UROBILINOGEN 0.2 mg/dL (0.2-1.0)
--- NOTE | 2019-05-13 16:56 | EKG ---
Test Reason : Blood Pressure : / mmHG Vent. Rate : 079 BPM Atrial Rate : 079 BPM P-R Int : 152 ms QRS Dur : 072 ms QT Int : 404 ms P-R-T Axes : 067 021 057 degrees QTc Int : 463 ms NORMAL SINUS RHYTHM NORMAL ECG WHEN COMPARED WITH ECG OF 02-MAY-2019 20:33, NO SIGNIFICANT CHANGE WAS FOUND Confirmed by RAFAT PEREZ MD ([id number]) on 05/13/2019 4:55:56 PM Referred By: Confirmed By:RAFAT PEREZ MD
== END 2019-05-12 00:48 | disposition short-term general hospital (02) ==
LOC: JER 15:40
PROC: 3E033NZ Introduction of Analgesics, Hypnotics, Sedatives into Peripheral Vein, Percutaneous Approach (ICD-10-PCS; principal; 2019-05-11)
DX: G40.909 Epilepsy, unspecified, not intractable, without status epilepticus (principal); I10 Essential (primary) hypertension; E78.00 Pure hypercholesterolemia, unspecified; I69.851 Hemiplegia and hemiparesis following other cerebrovascular disease affecting right dominant side; Z21 Asymptomatic human immunodeficiency virus [HIV] infection status; Z87.11 Personal history of peptic ulcer disease; F10.10 Alcohol abuse, uncomplicated; F14.10 Cocaine abuse, uncomplicated; F17.210 Nicotine dependence, cigarettes, uncomplicated
CPT/HCPCS: 36415; 71045-TC-FY; 80053; 80177; 81003; 82272; 82962; 84484; 85025; 93005; 93010; 96374; 99283-25; J0131